=== PATIENT | male | born 1965 | race Caucasian/White ===

== ENCOUNTER 2017-01-21 07:41 | Day surgery (SDC) | payer BC ==
[~2017-01-21] VITALS: Ht 170.2 cm; Wt 103.1 kg
[~2017-01-21 07:41] MED LIST: CEPHALEXIN500 M1 PO; LIPITOR 40MG TA40 MG PO; MOBIC15 MG PO; SEROQUEL50 MG PO; ULTRAM 50MG TAB50 MG PO; ZESTORETIC 12.51 TA1 PO
[2017-01-21] MEDS ORDERED: NORCO 325 MG-51 TAB PO (08:21)
[2017-01-21] MEDS ORDERED: PROTONIX20 MG PO (08:22)
[2017-01-21] MEDS ORDERED: PRAVACHOL 40MG40 MG PO (08:23)
[2017-01-21 08:24] VITALS: BP 126/86; PULSE 70; TEMP 97.8
[2017-01-21] MEDS ORDERED: NEURONTIN600 MG/TAB PO (08:24)
[2017-01-21] MEDS ORDERED: LIORESAL 1010 MG/TAB PO (08:25)
[2017-01-21] MEDS ORDERED: ASPIRIN 81M81 MG/TA2 PO (08:26)
[2017-01-21 09:45] VITALS: PULSE 84; TEMP 98
[2017-01-21 10:00] VITALS: BP 130/70; PULSE 82
[2017-01-21 10:15] VITALS: BP 119/69; PULSE 89
== END 2017-01-21 10:30 | disposition home or self-care (01) ==
LOC: SDCO 07:41
DX: K22.70 Barrett's esophagus without dysplasia (principal); K21.0 Gastro-esophageal reflux disease with esophagitis; K22.2 Esophageal obstruction; I10 Essential (primary) hypertension; E78.00 Pure hypercholesterolemia, unspecified; K57.30 Diverticulosis of large intestine without perforation or abscess without bleeding
CPT/HCPCS: OP; C1726; J2250; J2405; J3010; J7030

== ENCOUNTER → 2017-11-25 | Outpatient (CLI) | payer BC ==
[~2017-11-25] MED LIST changes: +ASPIRIN 81M81 MG/TA2 PO; +LIORESAL 1010 MG/TAB PO; +NEURONTIN600 MG/TAB PO; +NORCO 325 MG-51 TAB PO; +PRAVACHOL 40MG40 MG PO; +PROTONIX20 MG PO
== END ==
LOC: MHCPAIN 11:01
DX: G89.29 Other chronic pain (principal); M47.817 Spondylosis without myelopathy or radiculopathy, lumbosacral region; M53.3 Sacrococcygeal disorders, not elsewhere classified; M79.2 Neuralgia and neuritis, unspecified
CPT/HCPCS: G0463

== ENCOUNTER → 2017-11-25 | Outpatient (CLI) | payer BC | LOC: COL.RAD 12:25 | DX: M51.34 Other intervertebral disc degeneration, thoracic region (principal); M47.816 Spondylosis without myelopathy or radiculopathy, lumbar region ==

== ENCOUNTER → 2018-01-06 | Outpatient (CLI) | payer BC | LOC: MHCPAIN 08:29 | DX: G89.29 Other chronic pain (principal); M47.817 Spondylosis without myelopathy or radiculopathy, lumbosacral region; M53.3 Sacrococcygeal disorders, not elsewhere classified | CPT/HCPCS: G0463 ==

== ENCOUNTER → 2018-01-19 | Outpatient (CLI) | payer BC | LOC: MHCPAIN 15:03 | DX: M47.817 Spondylosis without myelopathy or radiculopathy, lumbosacral region (principal); M54.16 Radiculopathy, lumbar region ==

== ENCOUNTER → 2018-01-27 | Outpatient (CLI) | payer BC | LOC: MHCPAIN 09:55 | DX: G89.29 Other chronic pain (principal); M47.817 Spondylosis without myelopathy or radiculopathy, lumbosacral region; M53.3 Sacrococcygeal disorders, not elsewhere classified | CPT/HCPCS: G0463 ==

== ENCOUNTER → 2018-02-06 | Outpatient (CLI) | payer BC | LOC: MHCPAIN 11:56 | DX: M47.817 Spondylosis without myelopathy or radiculopathy, lumbosacral region (principal); M46.96 Unspecified inflammatory spondylopathy, lumbar region | CPT/HCPCS: J1100; J2250; J3010 ==

== ENCOUNTER → 2018-02-09 | Outpatient (CLI) | payer BC | LOC: MHCPAIN 11:52 | DX: M47.817 Spondylosis without myelopathy or radiculopathy, lumbosacral region (principal); M54.5 Low back pain | CPT/HCPCS: J1100; J2250; J3010 ==

== ENCOUNTER → 2018-04-05 | Outpatient (CLI) | payer BC | LOC: MHCPAIN 08:18 | DX: G89.29 Other chronic pain (principal); M47.817 Spondylosis without myelopathy or radiculopathy, lumbosacral region; M53.3 Sacrococcygeal disorders, not elsewhere classified | CPT/HCPCS: G0463 ==

== ENCOUNTER → 2018-08-02 | Outpatient (CLI) | payer BC | LOC: MHCPAIN 15:04 | DX: G89.29 Other chronic pain (principal); M47.817 Spondylosis without myelopathy or radiculopathy, lumbosacral region; M53.3 Sacrococcygeal disorders, not elsewhere classified | CPT/HCPCS: G0463 ==

== ENCOUNTER → 2018-08-21 | Outpatient (CLI) | payer BC | LOC: MHCPAIN 12:39 | DX: M47.817 Spondylosis without myelopathy or radiculopathy, lumbosacral region (principal); M54.16 Radiculopathy, lumbar region ==

== ENCOUNTER → 2018-09-14 | Outpatient (CLI) | payer BC | LOC: MHCPAIN 14:34 | DX: M47.817 Spondylosis without myelopathy or radiculopathy, lumbosacral region (principal); M53.3 Sacrococcygeal disorders, not elsewhere classified; G89.29 Other chronic pain | CPT/HCPCS: G0463; J1100; J2250; J3010 ==

== ENCOUNTER → 2018-09-18 | Outpatient (CLI) | payer BC | LOC: MHCPAIN 10:47 | DX: M47.817 Spondylosis without myelopathy or radiculopathy, lumbosacral region (principal); M54.16 Radiculopathy, lumbar region | CPT/HCPCS: J1100; J2250; J3010 ==

== ENCOUNTER → 2018-11-21 | Outpatient (CLI) | payer BC | LOC: MHCPAIN 15:09 | DX: G89.29 Other chronic pain (principal); M47.817 Spondylosis without myelopathy or radiculopathy, lumbosacral region; M53.3 Sacrococcygeal disorders, not elsewhere classified | CPT/HCPCS: G0463 ==

== ENCOUNTER → 2019-03-06 | Outpatient (CLI) | payer BC | LOC: MHCPAIN 10:53 | DX: G89.29 Other chronic pain (principal); M47.817 Spondylosis without myelopathy or radiculopathy, lumbosacral region; M53.3 Sacrococcygeal disorders, not elsewhere classified | CPT/HCPCS: G0463 ==

== ENCOUNTER → 2019-03-15 | Outpatient (CLI) | payer BC | LOC: MHCPAIN 09:12 | DX: M47.817 Spondylosis without myelopathy or radiculopathy, lumbosacral region (principal); M54.16 Radiculopathy, lumbar region ==

== ENCOUNTER → 2019-04-05 | Outpatient (CLI) | payer BC | LOC: MHCPAIN 14:11 | DX: M47.817 Spondylosis without myelopathy or radiculopathy, lumbosacral region (principal); M54.16 Radiculopathy, lumbar region; M53.3 Sacrococcygeal disorders, not elsewhere classified; G89.29 Other chronic pain | CPT/HCPCS: G0463; J1100; J2250; J3010 ==

== ENCOUNTER → 2019-04-19 | Outpatient (CLI) | payer BC | LOC: MHCPAIN 13:52 | DX: M47.817 Spondylosis without myelopathy or radiculopathy, lumbosacral region (principal); M54.16 Radiculopathy, lumbar region | CPT/HCPCS: J1100; J2250; J3010 ==

== ENCOUNTER → 2019-11-27 | Outpatient (CLI) | payer BC | LOC: MHCPAIN 09:56 | DX: M54.5 Low back pain (principal); M53.3 Sacrococcygeal disorders, not elsewhere classified; G89.29 Other chronic pain | CPT/HCPCS: G0463 ==

== ENCOUNTER → 2019-12-13 | Outpatient (CLI) | payer BC | LOC: MHCPAIN 09:00 | DX: M47.817 Spondylosis without myelopathy or radiculopathy, lumbosacral region (principal); M54.5 Low back pain | CPT/HCPCS: J2250; J3010 ==

== ENCOUNTER → 2019-12-27 | Outpatient (CLI) | payer BC | LOC: MHCPAIN 09:33 | DX: M47.817 Spondylosis without myelopathy or radiculopathy, lumbosacral region (principal); M54.5 Low back pain; M53.3 Sacrococcygeal disorders, not elsewhere classified | CPT/HCPCS: J2250; J3010 ==

== ENCOUNTER → 2020-08-27 | Outpatient (CLI) | payer OTHER | LOC: MHCPAIN 07:54 | DX: M47.817 Spondylosis without myelopathy or radiculopathy, lumbosacral region (principal); M54.5 Low back pain; M53.3 Sacrococcygeal disorders, not elsewhere classified; G89.29 Other chronic pain | CPT/HCPCS: G0463 ==

== ENCOUNTER → 2020-09-04 | Outpatient (CLI) | payer OTHER | LOC: MHCPAIN 09:16 | DX: M47.817 Spondylosis without myelopathy or radiculopathy, lumbosacral region (principal); M54.5 Low back pain; M53.3 Sacrococcygeal disorders, not elsewhere classified ==

== ENCOUNTER → 2020-09-22 | Outpatient (CLI) | payer OTHER | LOC: MHCPAIN 11:16 | DX: M47.817 Spondylosis without myelopathy or radiculopathy, lumbosacral region (principal); M54.5 Low back pain | CPT/HCPCS: G0463; J1100; J2250; J3010 ==

== ENCOUNTER → 2020-09-25 | Outpatient (CLI) | payer OTHER | LOC: MHCPAIN 13:47 | DX: M54.5 Low back pain (principal); M53.3 Sacrococcygeal disorders, not elsewhere classified | CPT/HCPCS: J1100; J2250; J3010 ==

== ENCOUNTER → 2020-10-30 | Outpatient (CLI) | payer OTHER | LOC: COL.RAD 13:20 | DX: Z12.2 Encounter for screening for malignant neoplasm of respiratory organs (principal); F17.210 Nicotine dependence, cigarettes, uncomplicated ==

== ENCOUNTER → 2021-04-01 | Outpatient (CLI) | payer OTHER | LOC: MHCPAIN 10:29 | DX: M47.816 Spondylosis without myelopathy or radiculopathy, lumbar region (principal); M53.3 Sacrococcygeal disorders, not elsewhere classified; M54.50 Low back pain, unspecified | CPT/HCPCS: G0463 ==

== ENCOUNTER → 2021-04-22 | Outpatient (CLI) | payer OTHER | LOC: MHCPAIN 08:25 | DX: M47.817 Spondylosis without myelopathy or radiculopathy, lumbosacral region (principal); M54.50 Low back pain, unspecified; M53.3 Sacrococcygeal disorders, not elsewhere classified | CPT/HCPCS: J1100; J2250; J3010 ==

== ENCOUNTER → 2021-11-18 | Outpatient (CLI) | payer BC | LOC: MHCPAIN 10:48 | DX: M54.50 Low back pain, unspecified (principal); M54.6 Pain in thoracic spine; M47.896 Other spondylosis, lumbar region | CPT/HCPCS: G0463 ==

== ENCOUNTER → 2021-12-03 | Outpatient (CLI) | payer BC | LOC: MHCPAIN 09:36 | DX: M47.817 Spondylosis without myelopathy or radiculopathy, lumbosacral region (principal); M54.50 Low back pain, unspecified; M53.3 Sacrococcygeal disorders, not elsewhere classified | CPT/HCPCS: J1100; J2250; J3010 ==

== ENCOUNTER → 2023-04-06 | Outpatient (CLI) | payer OTHER | LOC: MHCPAIN 09:43 | DX: M54.6 Pain in thoracic spine (principal); M54.50 Low back pain, unspecified; M79.2 Neuralgia and neuritis, unspecified | CPT/HCPCS: G0463 ==